=== PATIENT | male | born 1970 | race Caucasian/White ===

== ENCOUNTER 2017-04-18 17:56 | Emergency (ER) | payer SELFPAY ==
[~2017-04-18] VITALS: Ht 177.8 cm; Wt 80.0 kg
[~2017-04-18 17:56] MED LIST: ALPR.25 PO; BACL10TA PO; CYCL1TAB29 PO; MECL25CH CHEW
[2017-04-18 18:01] VITALS: BP 124/88; PULSE 115; RESP 24; TEMP 98; O2SAT 98
[2017-04-18] MEDS ORDERED: HYDROmorphone HCL PF 1 MG/ML VIAL IV PUSH ONE (18:15)
[2017-04-18] MEDS ORDERED: HYDROmorphone HCL PF 1 MG/ML VIAL IVS ONE (18:30)
[2017-04-18] MEDS ORDERED: TETANUS/DIPHTHERIA TOXOID ADULT 0.5 ML VIAL IM ONE (18:30)
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
[2017-04-18] MEDS ORDERED: HYDROmorphone HCL PF 2 MG/ML VIAL IV PUSH ONE (19:45)
[2017-04-18 20:35] VITALS: RESP 18
== END 2017-04-18 21:16 | disposition short-term general hospital (02) ==
LOC: NEPC 17:56
DX: T24.222A Burn of second degree of left knee, initial encounter (principal); T22.222A Burn of second degree of left elbow, initial encounter; X03.0XXA Exposure to flames in controlled fire, not in building or structure, initial encounter
CPT/HCPCS: 96374; 96376; 99285; J1170